=== PATIENT | female | born 1955 | race Caucasian/White ===

== ENCOUNTER 2019-07-20 18:20 | Outpatient (CLI) | payer MEDICARE, OTHER, SELFPAY ==
[2019-07-20 19:55] LABS: Basophils % 0.3 %; Eosinophils # 0.2 10^3/uL (0.0-0.8); Eosinophils % 2.8 %; Hematocrit 45.2 % (37.0-47.0); Hemoglobin 14.7 g/dL (11.5-15.3); Lymphocytes # 1.3 10^3/uL (0.8-4.8); Lymphocytes % 19.3 %; Mean Corpuscular HGB Conc 32.5 g/dL (30.0-36.0); Mean Corpuscular Hemoglobin 32.5 pg (28.0-34.0); Mean Corpuscular Volume 99.8 fL (81-99); Mean Platelet Volume 11.5 fL (7.4-10.4); Monocytes # 0.8 10^3/uL (0.2-0.9); Monocytes % 11.8 %; Neutrophils # 4.3 10^3/uL (1.8-7.7); Neutrophils % 65.2 %; Nucleated Red Blood Cells % 0 %; Platelet Count 259 10^3/cmm (130-400); Red Blood Count 4.53 10^6/uL (4.1-5.3); Red Cell Distribution Width 12.2 % (12.1-15.1); White Blood Count 6.5 10^3/uL (4.0-10.0)
[2019-07-20 23:53] LABS: Alanine Aminotransferase 19 U/L (0-33); Albumin Level 4.6 g/dL (3.5-5.2); Alkaline Phosphatase 85 IU/L (35-105); Anion Gap 14.6 (5-19); Aspartate Amino Transferase 26 U/L (0-32); Blood Urea Nitrogen 15 mg/dL (8-23); Calcium 9.6 mg/dL (8.5-10.5); Carbon Dioxide 28 mmol/L (22-29); Chloride 103 mmol/L (98-107); Chol HDL Ratio 3.74 mg/dL (0.0-4.40); Cholesterol 213 mg/dL (0-200); Globulin 2.8 g/dL (1.3-4.6); Glomerular Filtration Rate 83.7 mL/min (90-130); Glucose 70 mg/dL (65-115); HDL Cholesterol 57 mg/dL (60-100); LDL Cholesterol Calculated 144 mg/dL (50-129); LDL HDL Ratio 2.53 RATIO (0.00-3.22); Osmolality Calculated 285 mOsm/kg (285-295); Potassium 5.6 mmol/L (3.5-5.1); Sodium 140 mmol/L (136-145); Thyroid Stimulating Hormone 2.78 uIU/mL (0.27-4.20); Total Bilirubin 0.3 mg/dL (0.15-1.2); Total Protein 7.4 g/dL (6.6-8.7); Triglycerides 60 mg/dL (0-150)
[2019-07-21 02:13] LABS: 25 Hydroxy Vitamin D 31 ng/mL (30-100)
== END 2019-07-20 18:21 | disposition home or self-care (01) ==
PROVIDERS: Family Provider Internal Medicine; Visit Provider Nurse Practitioner Family
DX: E78.00 Pure hypercholesterolemia, unspecified (principal); M85.80 Other specified disorders of bone density and structure, unspecified site
CPT/HCPCS: 80053; 80061; 82306; 84443; 85025

== ENCOUNTER 2019-09-22 13:01 | Outpatient (CLI) | payer MEDICARE, OTHER, SELFPAY ==
--- NOTE | 2019-09-22 13:11 | MM_ITS ---
WS: [id number] BILATERAL DIGITAL SCREENING MAMMOGRAPHY WITH CAD CLINICAL INFORMATION: HX OF BREAST CA HISTORY: Screening mammogram. No current complaints. COMPARISON: August 25, 2018 TECHNIQUE: Bilateral CC and MLO views. FINDINGS: Scattered fibroglandular densities bilaterally. No suspicious focal mass, asymmetry, calcifications, or architectural distortion. No evidence of malignancy. Punctate calcifications. Biopsy clip left nimisha ast MM/[id number] IMPRESSION: BI-RADS: 2-Benign FOLLOW UP: 1 Year Follow-up Recommend return to annual diagnostic mammography.
--- NOTE | 2019-09-22 14:09 | PFTS_ITS ---
Date of Study:09/22/19 Date of Dictation: MECHANICS: Forced vital capacity (FVC) is normal. Forced expiratory volume in one second (FEV1) is normal. FEV1/FVC is reduced. FLOW VOLUME LOOP: Reduced flow at all lung volumes with scooping. LUNG VOLUMES: Total lung capacity (TLC) is . Residual volume (RV) is elevated. DIFFUSING CAPACITY FOR CARBON MONOXIDE: Normal. INTERPRETATION: The pulmonary function tests are consistent with mild obstruction. However, the test was performed prebronchodilator. No postbronchodilator pulmonary function test was performed. Lung volumes are suggestive of air trapping without hyperinflation. Gas exchange (DLCO) is normal. MTDD
== END 2019-09-22 13:02 | disposition home or self-care (01) ==
PROVIDERS: PCP Internal Medicine; Visit Provider Nurse Practitioner Family
DX: Z85.3 Personal history of malignant neoplasm of breast (principal); J44.9 Chronic obstructive pulmonary disease, unspecified
CPT/HCPCS: 77066; 94010; 94726; 94729

== ENCOUNTER 2020-11-10 13:34 | Outpatient (CLI) | payer MEDICARE, SELFPAY ==
--- NOTE | 2020-11-10 13:41 | MM_ITS ---
WS: [id number] DIAGNOSTIC BILATERAL DIGITAL MAMMOGRAM WITH CAD HISTORY: HX OF BREAST CA COMPARISON: 09/22/2019, 08/25/2018 at 08/21/2017 TECHNIQUE: Bilateral craniocaudad, mediolateral oblique, and mediolateral views are submitted. Comput er aided detection utilized. Breast composition: There are scattered areas of fibroglandular density. Stable area of architectural distortion in the inferior anterior LEFT breast. Benign calcifications. Biopsy clip in the anterior LEFT breast. MM/[id number] IMPRESSION: BI-RADS: 2-Benign FOLLOW UP: 1 Year Follow-up
== END 2020-11-10 13:35 | disposition home or self-care (01) ==
LOC: RADSHAW 13:39
PROVIDERS: PCP Family Medicine Adult Medicine; Visit Provider Family Medicine Adult Medicine
DX: Z85.3 Personal history of malignant neoplasm of breast (principal)
CPT/HCPCS: 77066

== ENCOUNTER → 2021-03-13 09:48 | Outpatient (BNVA) | payer MEDICARE, SELFPAY | PROVIDERS: PCP Family Medicine Adult Medicine; Visit Provider Family Medicine Adult Medicine | DX: J44.9 Chronic obstructive pulmonary disease, unspecified (principal); E78.5 Hyperlipidemia, unspecified; F32.9 Major depressive disorder, single episode, unspecified; R53.83 Other fatigue; Z13.6 Encounter for screening for cardiovascular disorders | CPT/HCPCS: 80053; 80061; 84443; 85025 ==

== ENCOUNTER → 2021-08-10 09:52 | Outpatient (BNVA) | payer MEDICARE, SELFPAY | PROVIDERS: PCP Family Medicine Adult Medicine; Visit Provider Family Medicine Adult Medicine | DX: J44.9 Chronic obstructive pulmonary disease, unspecified (principal); E78.5 Hyperlipidemia, unspecified; R53.83 Other fatigue; F32.9 Major depressive disorder, single episode, unspecified; F17.200 Nicotine dependence, unspecified, uncomplicated | CPT/HCPCS: 80053; 80061 ==

== ENCOUNTER 2022-05-03 14:19 | Outpatient (CLI) | payer MEDICARE, SELFPAY ==
--- NOTE | 2022-05-03 14:29 | MM_ITS ---
WS: [id number] BILATERAL 3D TOMOSYNTHESIS DIGITAL SCREENING MAMMOGRAPHY WITH CAD CLINICAL INFORMATION: HX BREAST CA HISTORY: Screening mammogram. No current complaints. COMPARISON: May 03, 2022 TECHNIQUE: Bilateral CC and MLO views. FINDINGS: Scattered fibroglandular densities bilaterally. No suspicious focal mass, asymmetry, calcifications, or architectural distortion. No evidence of malignancy. Punctate and lucent calcifications. Biopsy cl ip LEFT breast. Scattered tiny punctate calcifications anteriorly in both breasts similar to previous . MM/[id number] IMPRESSION: BI-RADS: 2-Benign FOLLOW UP: 1 Year Follow-up Recommend return to annual screening mammography.
== END 2022-05-03 14:20 | disposition home or self-care (01) ==
LOC: RAD 14:23
PROVIDERS: PCP Family Medicine Adult Medicine; Visit Provider Family Medicine Adult Medicine
DX: Z08 Encounter for follow-up examination after completed treatment for malignant neoplasm (principal); Z85.3 Personal history of malignant neoplasm of breast
CPT/HCPCS: 77062; G0279

== ENCOUNTER → 2022-09-04 09:39 | Outpatient (BNVA) | payer MEDICARE, SELFPAY | PROVIDERS: PCP Family Medicine Adult Medicine; Visit Provider Family Medicine Adult Medicine | DX: R53.83 Other fatigue (principal); F32.9 Major depressive disorder, single episode, unspecified; E78.5 Hyperlipidemia, unspecified; F17.200 Nicotine dependence, unspecified, uncomplicated; J44.9 Chronic obstructive pulmonary disease, unspecified | CPT/HCPCS: 80053; 80061; 84443; 85025 ==

== ENCOUNTER → 2023-03-15 09:40 | Outpatient (BNVA) | payer MEDICARE, SELFPAY | PROVIDERS: PCP Family Medicine Adult Medicine; Visit Provider Family Medicine Adult Medicine | DX: K59.01 Slow transit constipation (principal); E78.5 Hyperlipidemia, unspecified; F32.9 Major depressive disorder, single episode, unspecified; J44.9 Chronic obstructive pulmonary disease, unspecified; R53.83 Other fatigue | CPT/HCPCS: 80053; 80061; 84443; 85025 ==

== ENCOUNTER 2024-08-06 11:10 | Emergency (ER) | payer MEDICARE, SELFPAY ==
[2024-08-06] VITALS (7 sets, daily range): BP systolic 134–172; BP diastolic 77–95; PULSE 61–98; RESP 17; TEMP 36.6; O2SAT 95–100; BMI 26.6
[2024-08-06 12:49] LABS: Basophils % 0.3 %; Lymphocytes # 1.4 10^3/uL (0.8-4.8); Lymphocytes % 22.1 %; Mean Corpuscular HGB Conc 33.5 g/dL (30-55); Mean Corpuscular Hemoglobin 31.2 pg (27-33); Mean Corpuscular Volume 93.2 fl (85-98); Mean Platelet Volume 10.2 fL (7.4-10.4); Monocytes # 0.6 10^3/uL (0.2-0.9); Neutrophils # 4.28 10^3/uL (1.8-7.7); Neutrophils % 67.1 %; Nucleated Red Blood Cells % 0 %; Platelet Count 237 10^3/cmm (157-399); Red Blood Count 5.26 10^6/uL (3.85-5.65); Red Cell Distribution Width 12.1 % (12.1-15.1); White Blood Count 6.38 10^3/uL (3.29-11.43)
[2024-08-06 13:14] LABS: Alanine Aminotransferase 13 U/L (0-33); Albumin Level 4.6 g/dL (3.5-5.2); Alkaline Phosphatase 65 U/L (35-105); Anion Gap 18.4 (5-19); Aspartate Amino Transferase 20 U/L (0-32); Blood Urea Nitrogen 17 mg/dL (8-23); Calcium 9.7 mg/dL (8.5-10.5); Carbon Dioxide 25 mmol/L (22-29); Chloride 98 mmol/L (98-107); Creatinine Clr Calc Pharmacy 64.3826; Globulin 4.3 g/dL (1.3-4.6); Glucose 165 mg/dL (65-115); Osmolality Calculated 291 mOsm/kg (285-295); Potassium 3.4 mmol/L (3.5-5.1); Sodium 138 mmol/L (136-145); Total Bilirubin 0.5 mg/dL (0.15-1.2); Total Protein 8.9 g/dL (6.6-8.7)
[2024-08-06 13:30] LABS: Slide Review Slide Review Perform
[2024-08-06 14:33] LABS: Bilirubin Urine Negative (Negative); Blood Urine 2+ (Negative); Glucose Urine UA Negative (Normal); Ketones Urine Trace (Negative); Leukocyte Esterase Urine 1+ (Negative); Nitrate Urine Negative (Negative); Protein Urine 1+ (Negative); Specific Gravity, Urine 1.028 (1.005-1.030); Urine Appearance Turbid (CLEAR); Urine Color Dark Yellow (Yellow)
[2024-08-06 14:38] LABS: Add Urine Microscopic? YES; Bacteria Urine None Seen /hpf
[2024-08-06 15:02] LABS: Add Urine Culture? No
--- NOTE | 2024-08-06 15:37 | CTR_ITS ---
PROCEDURE INFORMATION: Exam: CT Head Without Contrast Exam date and time: 08/06/2024 4:00 PM Age: 69 years old Clinical indication: Other: [place] and vomiting; Additional info: N/v TECHNIQUE: Imaging protocol: Computed tomography of the head without contrast. Radiation optimization: All CT scans at this facility use at least one of these dose optimization techniques: automated exposure control; mA and/or kV adjustment per patient size (includes targeted exams where dose is matched to clinical indication); or iterative reconstruction. COMPARISON: No relevant prior studies available. RADIATION DOSE METRICS: Total DLP (mGy-cm): 1054.48 FINDINGS: Brain: Normal. No hemorrhage. Unremarkable white matter. No mass effect. Cerebral ventricles: No ventriculomegaly. Paranasal sinuses: There is a small mucous retention cyst or polyp within the right sphenoid sinus. Mastoid air cells: Visualized mastoid air cells are well aerated. Bones: Unremarkable. No acute fracture. Soft tissues: Unremarkable. CT/CT head wo con* [id number] IMPRESSION: No acute intracranial abnormality
[2024-08-06] MEDS: fluorescein 1 mg Strip EYE-RIGHT (15:44)
[2024-08-06] MEDS: pantoprazole 40 mg SDV IVP (15:46)
[2024-08-06] MEDS: ondansetron 2 mg/ML SDV 2 mL 4 MG IVP (15:46)
[2024-08-06] MEDS: tetracaine 0.5% Op Soln 4 mL Btl 1 DROP EYE-RIGHT (17:04)
--- NOTE | 2024-08-06 17:15 | ED_ITS ---
HPI - Nausea/Vomiting/Diarrhea 2 General: Chief complaint: Nausea/Vomiting/Diarrhea Stated complaint: n,v Time Seen by Provider: 08/06/24 14:11 Source: patient Mode of arrival: ambulatory Limitations: no limitations History of Present Illness: 69-year-old female who started having il lness on Saturday through Saturday. Had rash on the right side of face only as well as intra-oral lesions. Pain behind the right eye and pain on the scalp. Seen in urgent care and diagnosed with poison jacob but only in that area no other place. given steroid shot. sicne then has started to feel more ill. she is having N/V and headache. Profuse vomiting with PO intake. just nauseated without intake. did quit smoking 7 months ago. did vape THC yesterday and it made her more sick. No etoh. Related Data Home Medications ?Medication ?Instructions ?Recorded ?Confirmed magnesium oxide 400 mg (241.3 mg 400 mg PO DAILY 08/0608/06/24 magnesium) tablet (MagOx) Previous Rx's ?Medication ?Instructions ?Recorded venlafaxine 150 mg 150 mg PO DAILY [facility] 04/09/24 capsule,extended release 24 hr caps ketorolac 10 mg tablet 10 mg PO Q8H PRN pain 5 days #20 08/06/24 tabs ondansetron 8 mg disintegrating 8 mg PO Q8H PRN nausea and 08/06/24 tablet vomiting 10 days #30 tabs pantoprazole 40 mg tablet,delayed 40 mg PO DAILY #30 t abs 08/06/24 release valacyclovir 1 gram tablet 1,000 mg PO TID 7 days #21 tabs 08/06/24 Allergies Allergy/AdvReac Type Severity Reaction Status Date / Time Sulfa (Sulfonamide Allergy Intermediate ALGY-Hives Verified 08/03/24 09:24 Antibiotics) Penicillins Allergy Mild ALGY-Hives Verified 08/03/24 09:24 Review of Systems 2 General: Reports: 10 or more systems reviewed and unremarkable except in HPI and below PFSH ED 2 PFSH: Medical History (Updated 08/06/24 @ 17:22 by Jairon Esqueda MD) Allergic reaction to chemical substance Gastroesophageal reflux disease History of breast cancer Smoker Quit 03/25/2021 started again 06/23/2021 Hyperlipidemia LDL goal <130 Depression COPD (chronic obstructive pulmonary disease) Surgical History History of lumpectomy of right breast removed a lump that was cancerous History of hip replacement History of bilateral tubal ligation Family History Grandmother Cancer, Onset Age: 94 Maternal Mother Clotting disorder Dementia Hyperlipidemia Hypertension Denies family history of Diabetes CAD (coronary artery disease) Chronic kidney disease (CKD) Anesthesia complication Bleeding disorder Lung disease Stroke Social History Smoking and tobacco/nicotine status: former use of tobacco/nicotine (3 months ) Alcohol intake: current Alcohol intake frequency: few times a month Substance/Drug Use: current Substance/Drug use frequency: few times a month Caregiver/support person: No Lives independently: Yes Household members: children Marital status: / Highest education level completed: 12th Grade, No Diploma service: No Current occupational status: retired Current gender identity: Female Physical Exam 2 Const: COMMON NORMALS: no acute distress, patient oriented x3, no limitations, healthy appearing, alert and well nourished HENMT: COMMON NORMALS: normocephalic and atraumatic HEAD & SCALP: n ormocephalic and atraumatic HEAD IMAGES: 1. rash, no mostly dried, consistent with shingles Eye: COMMON NORMALS: Equal, round and reactive pupils present, EOMs intact bilaterally, conjunctivae normal, no scleral icterus and normal visual stoll by confrontation GENERAL EYE: appearance normal, both eyes and all related structures VISUAL ACUITY: Yes acuity normal CONJUNCTIVA: Yes conjunctivae normal PUPIL: Yes Equal, round and reactive pupils present OTHER: Fluorescein stain done, no lesions on the cornea dendritic or otherwise. Resp: COMMON NORMALS: normal respiratory effort, No retractions, No use of accessory muscles, clear to auscultation bilaterally and percussion normal A USCULTATION: clear to auscultation bilaterally PERCUSSION: percussion normal Cardio: COMMON NORMALS: regular rate, regular rhythm, S1 normal heart sound present and S2 normal heart sound present RATE: regular rate RHYTHM: r egular rhythm HEART SOUNDS: S1 normal heart sound present and S2 normal heart sound present GI: COMMON NORMALS: Normal to inspection, nondistended, normoactive bowel sounds present Extremity: COMMON NORMALS: normal to inspection and full ROM Neuro: COMMON NORMALS: patient oriented x3 SENSORIUM/ORIENTATION: Yes alert Course 2 Vital Signs: Vital signs: Vital Signs Temperature 97.8 F 08/06/24 11:48 Pulse Rate 74 08/06/24 17:00 Respiratory Rate 17 08/06/24 11:48 Blood Pressure 143/77 08/06/24 17:00 Pulse Oximetry 97 08/06/24 17:00 Oxygen Delivery Me thod Room Air 08/06/24 17:00 MDM - Nausea/Vomiting/Diarrhea Medical Decision Making Shingles of the right face, thankfully no lesions on the cornea. Will treat with valacyclovir given its on the face and also will prescribe Zofran and Protonix for the gastritis. Advised patient to hold off on marijuana until well-healed. Ease back into normal diet. Patient's breast understanding. Differential Diagnosis Likely gastroenteritis and drug-induced nausea and vomiting Medical Records I reviewed the patient's medical records. Lab Data I reviewed the patient's lab results. 08/06/24 12:36 08/06/24 12:[address] 08/06/24 15:37 IMPRESSION: No acute intracranial abnormality Laboratory Results WBC 6.38 10^3/uL (3.29-11.43) 08/06/24 12:36 RBC 5.26 10^6/uL (3.85-5.65) 08/06/24 12:36 Hgb 16.40 g/dL (11.27-16.99) 08/06/24 12:36 Hct 49.0 % (36-47) H 08/06/24 12:36 MCV 93.2 fl (85-98) 08/06/24 12:36 MCH 31.2 pg (27-33) 08/06/24 12:36 MCHC 33.5 g/dL (30-55) 08/06/24 12:36 RDW 12.1 % (12.1-15.1) 08/06/24 12:36 Plt Count 237 10^3/cmm (157-399) 08/06/24 12:36 MPV 10.2 fL (7.4-10.4) 08/06/24 12:36 Neut % (Auto) 67.1 % 08/06/24 12:36 Lymph % (Auto) 22.1 % 08/06/24 12:36 [place] % (Auto) 10.0 % 08/06/24 12:36 Eos % (Auto) 0.0 % 08/06/24 12:36 Baso % (Auto) 0.3 % 08/06/24 12:36 Neut # (Auto) 4.28 10^3/uL (1.8-7.7) 08/06/24 12:36 Lymph # (Auto) 1.4 10^3/uL (0.8-4.8) 08/06/24 12:36 [place] # (Auto) 0.6 10^3/uL (0.2-0.9) 08/06/24 12:36 Eos # (Auto) 0.0 10^3/uL (0.0-0.8) 08/06/24 12:36 Baso # (Auto) 0.0 10^3/uL (0.0-0.1) 08/06/24 12:36 Nucleated RBC % (auto) 0 % 08/06/24 12:36 Nucleated RBCs # 0.0 /100WBC 08/06/24 12:36 Sodium 138 mmol/L (136-145) 08/06/24 12:36 Potassium 3.4 mmol/L (3.5-5.1) L 08/06/24 12:36 Chloride 98 mmol/L (98-107) 08/06/24 12:36 Carbon Dioxide 25 mmol/L (22-29) 08/06/24 12:36 Anion Gap 18.4 (5-19) 08/06/24 12:36 BUN 17 mg/dL (8-23) 08/06/24 12:36 Creatinine 0.6 mg/dL (0.5-0.9) 08/06/24 12:36 GFR Calculation Not Reportable 08/06/24 12:36 Glucose 165 mg/dL (65-115) H 08/06/24 12:36 Calculated Osmolality 291 mOsm/kg (285-295) 08/06/24 12:36 Calcium 9.7 mg/dL (8.5-10.5) 08/06/24 12:36 Total Bilirubin 0.5 mg/dL (0.15-1.2) 08/06/24 12:36 AST 20 U/L (0-32) 08/06/24 12:36 ALT 13 U/L (0-33) 08/06/24 12:36 Alkaline Phosphatase 65 U/L (35-105) 08/06/24 12:36 Total Protein 8.9 g/dL (6.6-8.7) H 08/06/24 12:36 Albumin 4.6 g/dL (3.5-5.2) 08/06/24 12:36 Globulin 4.3 g/dL (1.3-4.6) 08/06/24 12:36 Urine Color Dark yellow (Yellow) A 08/06/24 Unknown Urine Appearance Turbid (CLEAR) A 08/06/24 Unknown Urine pH 5.0 (5-7) 08/06/24 Unknown Ur Specific [place] 1.028 (1.005-1.030) 08/06/24 Unknown Urine Protein 1+ (Negative) A 08/06/24 Unknown Urine Glucose (UA) Negative (Normal) 08/06/24 Unknown Urine Ketones Trace (Negative) 08/06/24 Unknown Urine Blood 2+ (Negative) A 08/06/24 Unknown Urine Nitrate Negative (Negative) 08/06/24 Unknown Urine Bilirubin Negative (Negative) 08/06/24 Unknown Urine Urobilinogen 1.0 mg/dL (Negative) 08/06/24 Unknown Ur Leukocyte Esterase 1+ (Negative) A 08/06/24 Unknown Urine RBC 3-5 /hpf (0-2) 08/06/24 Unknown Urine WBC 6-10 /hpf (0-5) 08/06/24 Unknown Ur Squamous Epith Cells 6-10 /hpf (0-5) 08/06/24 Unknown Amorphous Sediment Not Reportable 08/06/24 Unknown Urine Bacteria None seen /hpf (NONE) 08/06/24 Unknown Hyaline Casts 3.30 /lpf 08/06/24 Unknown All radiology interpretation(s) finalized by discharge Discharge Plan Discharge Patient Disposition: Home Clinical Impression: Herpes zoster virus infection of face and ear nerves, Gastritis, Increased nausea and vomiting Condition: Stable Prescriptions: New ondansetron 8 mg tablet,disintegrating 8 mg PO Q8H PRN (Reason: nausea and vomiting) 10 Days Qty: 30 0RF valacyclovir 1 gram tablet 1,000 mg PO TID 7 Days Qty: 21 0RF ketorolac 10 mg tablet 10 mg PO Q8H PRN (Reason: pain) 5 Days Qty: 20 0RF Changed pantoprazole 40 mg tablet,delayed release (DR/EC) 40 mg PO DAILY Qty: 30 0RF No Action venlafaxine 150 mg capsule,extended release 24hr 150 mg PO DAILY Qty: 90 1RF magnesium oxide [MagOx] 400 mg (241.3 mg magnesium) Tablet 400 mg PO DAILY Discharge Orders: Discharge ED (Routine); Ordered 08/06/24 Ordered By: Jairon Esqueda Referrals: Ally Read NP [Primary Care Provider, Family Practice] Discharge Diet: Usual diet Discharge Activity: Resume usual activity Patient Instructions: [place] (ED) Print Language: Divehi Coding Level of Care Code ED Emergency Medicine Specialist for Saida Rose
[2024-08-06] MEDS: valACYclovir 1,000 mg Tablet 1000 MG PO (17:31)
[2024-08-06] MEDS: ondansetron hcl ODT 4 mg Tab 8 MG PO (17:44)
== END 2024-08-06 17:48 | disposition home or self-care (01) ==
PROVIDERS: Family Medicine; Emergency Provider Emergency Medicine
DX: K29.70 Gastritis, unspecified, without bleeding (principal); R11.2 Nausea with vomiting, unspecified; B02.9 Zoster without complications; Z87.891 Personal history of nicotine dependence; J44.9 Chronic obstructive pulmonary disease, unspecified; E78.5 Hyperlipidemia, unspecified
CPT/HCPCS: 36415; 70450; 80053; 81001; 85025; 96374; 96375; 99285; J2405; J2470; J9999; Q0162

== ENCOUNTER → 2025-01-09 11:42 | Outpatient (BNVA) | payer MEDICARE, SELFPAY | PROVIDERS: Visit Provider Emergency Medicine | DX: R39.9 Unspecified symptoms and signs involving the genitourinary system (principal) | CPT/HCPCS: 81000; 87086 ==

== ENCOUNTER → 2025-01-15 11:33 | Outpatient (BNVA) | payer MEDICARE, SELFPAY | DX: E78.5 Hyperlipidemia, unspecified (principal); R20.0 Anesthesia of skin; R20.2 Paresthesia of skin; D64.89 Other specified anemias; M81.0 Age-related osteoporosis without current pathological fracture | CPT/HCPCS: 80053; 80061; 82306; 82607; 83540; 84443; 85025 ==